=== PATIENT | female | born 1950 | race African-American/Black ===

== ENCOUNTER 2016-05-26 18:36 | Emergency (ER) | payer MEDICARE, MEDICAID ==
[~2016-05-26] VITALS: Ht 175.3 cm; Wt 94.8 kg
[2016-05-26 19:02] VITALS: BP 156/83
[2016-05-26 19:46] LABS: BASOPHILS % (AUTO) 1.6 % (0.0-2.0); EOSINOPHILS % (AUTO) 4.5 % (0.0-3.0); LYMPHOCYTES % (AUTO) 47.8 % (20.0-45.0); MEAN CORPUSCULAR HEMOGLOBIN 27.7 PG (27.0-31.0); MEAN CORPUSCULAR HGB CONC 30.6 G/DL (32.0-36.0); MEAN CORPUSCULAR VOLUME 91 FL (80-99); MEAN PLATELET VOLUME 6.3 FL (6.5-10.1); MONOCYTES % (AUTO) 4.1 % (1.0-10.0); NEUTROPHILS % (AUTO) 42.1 % (45.0-75.0); PLATELET COUNT 270 K/UL (150-450); RED BLOOD COUNT 4.62 M/UL (4.20-5.40); RED CELL DISTRIBUTION WIDTH 14.4 % (11.6-14.8); WHITE BLOOD COUNT 7.4 K/UL (4.8-10.8)
[2016-05-26 20:01] LABS: ALANINE AMINOTRANSFERASE 12 U/L (3-33); ALBUMIN/GLOBULIN RATIO 1.2 (1.0-2.7); ANION GAP 12 (5-15); ASPARTATE AMINO TRANSFERASE 14 U/L (5-40); CALCIUM 9.9 mg/dL (8.6-10.2); CARBON DIOXIDE 32 mEQ/L (20-30); CHLORIDE 100 mEQ/L (98-107); CREATININE 1.1 mg/dL (0.5-0.9); GLOMERULAR FILTRATION RATE 49.6 mL/min (>60); HEMOLYSIS 5; POTASSIUM 3.6 mEQ/L (3.4-4.9); SODIUM 144 mEQ/L (135-145); TOTAL PROTEIN 7.7 g/dL (6.6-8.7)
[2016-05-26] MEDS ORDERED: CLARITIN-D 241 EACH PO (20:19)
[2016-05-26] MEDS ORDERED: LEVOFLOXACIN500 MG ORAL (20:19)
[2016-05-26 20:28] VITALS: BP 156/83
--- NOTE | 2016-05-27 10:35 | Diagnostic Imaging Report ---
Indication: Headache Technique: Contiguous 5 mm thick transaxial imaging of the head obtained in a Siemens Sensation [address] scanner. Soft tissue and bone windows generated. Total Dose length Product (DLP): [address] Dose Index Volume (CTDIvol): 70.38 mGy Comparison: none Findings: The size and configuration of the cortical sulci, basal cisterns, and ventricles are within normal limits for age. There is no mass effect, midline shift, or edema identified. There is no evidence of acute hemorrhage or abnormal intra-axial or extra-axial fluid collections. The bones and soft tissues are unremarkable. Impression: No mass effect, edema or acute bleed. The CT scanner at [facility] is accredited by the [employer] and the scans are performed using protocols designed to limit radiation exposure to as low as reasonably achievable to attain images of sufficient resolution adequate for diagnostic evaluation.
--- NOTE | 2016-05-27 12:17 | Emergency Room Report ---
History of Present Illness General Chief Complaint: Dizziness Source: Patient (INDIA BISHOP) Present Illness HPI The pt is a 65 yo F with a Hx of CVA and allergies presenting for R sided facial pain and dizziness which began two weeks prior. The pt also admits to feeling congested. The pain is described as an 8/10 dull ache to R face. pt denies Blurred vision, fatigue, weakness, LOC, falling, SOB, CP, cough, N, V, abd pain (INDIA BISHOP) Allergies: Coded Allergies: CODEINE (Verified Allergy, Unknown, 05/26/16) Patient History Past Medical History: see triage record, CVA/TIA Pertinent Family History: none Now: No Reviewed Nursing Documentation: PMH: Agreed, PSxH: Agreed (INDIA BISHOP) Nursing Documentation-PMH Hx Hypertension: Yes (INDIA BISHOP) Review of Systems All Other Systems: negative except mentioned in HPI (INDIA BISHOP) Physical Exam Vital Signs Date Time Temp Pulse Resp B/P Pulse Ox O2 Delivery O2 Flow Rate FiO2 05/26/16 18:52 98.2 72 16 156/83 98 Room Air Sp02 EP Interpretation: reviewed, normal General Appearance: no apparent distress, alert, GCS 15, non-toxic Head: normocephalic, atraumatic Eyes: bilateral eye EOMI, bilateral eye PERRL, bilateral eye normal inspection ENT: hearing grossly normal, normal pharynx, no angioedema, normal voice, TMs + canals normal, uvula midline, other - TTP over T maxillary sinus Neck: full range of motion, supple/symm/no masses Respiratory: chest non-tender, lungs clear, normal breath sounds, no wheezing, speaking full sentences Cardiovascular #1: regular rate, rhythm, no edema Gastrointestinal: normal bowel sounds, non tender, soft, non-distended, no guarding, no rebound Musculoskeletal: back normal, gait/station normal, normal range of motion, non- tender Neurologic: alert, oriented x3, responsive, weigher and mixer III-XII nml as tested, motor strength/tone normal, sensory intact, speech normal Psychiatric: judgement/insight normal, memory normal, mood/affect normal, no suicidal/homicidal ideation Skin: normal color, no rash, warm/dry, well hydrated (INDIA BISHOP) Medical Decision Making MA Attestation Dr. Coulter is my supervising physician. Patient management was discussed with my supervising physician (INDIA BISHOP) Medicare Attestation The history of Kelin Abreu has been reviewed and management options for her have been examined and discussed by Shanon Coulter. I have personally examined and interviewed the patient. (SHANON COULTER D.O.) Diagnostic Impression: Primary Impression: Sinusitis ER Course The pt is a 65 yo F with a Hx of CVA and allergies presenting for R sided facial pain and dizziness which began two weeks prior DDx: sinusitis, dehydration, CVA, AOM, menieres disease PE: Pt is hypertensive. NAD. CN II-XII intact. A&Ox3 TTP over R maxillary sinus with nasal congestion. otherwise HEENT unremarkable. RRR Labs unremarkable. No anemia and no signs of dehydration. CT head unremarkable. The pt will be ID'ed home with prescription for Levaquin and Claritin. ER precautions given. Laboratory Tests Test 05/26/16 19:30 White Blood Count 7.4 K/UL (4.8-10.8) Red Blood Count 4.62 M/UL (4.20-5.40) Hemoglobin 12.8 G/DL (12.0-16.0) Hematocrit 41.9 % (37.0-47.0) Mean Corpuscular Volume 91 FL (80-99) Mean Corpuscular Hemoglobin 27.7 PG (27.0-31.0) Mean Corpuscular Hemoglobin Concent 30.6 G/DL (32.0-36.0) L Red Cell Distribution Width 14.4 % (11.6-14.8) Platelet Count 270 K/UL (150-450) Mean Platelet Volume 6.3 FL (6.5-10.1) L Neutrophils (%) (Auto) 42.1 % (45.0-75.0) L Lymphocytes (%) (Auto) 47.8 % (20.0-45.0) H Monocytes (%) (Auto) 4.1 % (1.0-10.0) Eosinophils (%) (Auto) 4.5 % (0.0-3.0) H Basophils (%) (Auto) 1.6 % (0.0-2.0) Sodium Level 144 mEQ/L (135-145) Potassium Level 3.6 mEQ/L (3.4-4.9) Chloride Level 100 mEQ/L (98-107) Carbon Dioxide Level 32 mEQ/L (20-30) H Anion Gap 12 (5-15) Blood Urea Nitrogen 12 mg/dL (7-23) Creatinine 1.1 mg/dL (0.5-0.9) H Estimate Glomerular Filtration Rate 49.6 mL/min (>60) Glucose Level 113 mg/dL (74-106) H Calcium Level 9.9 mg/dL (8.6-10.2) Total Bilirubin < 0.2 mg/dL (0.0-1.2) Aspartate Amino Transferase (AST) 14 U/L (5-40) Alanine Aminotransferase (ALT) 12 U/L (3-33) Alkaline Phosphatase 97 U/L (35-104) Total Protein 7.7 g/dL (6.6-8.7) Albumin 4.3 g/dL (3.5-5.2) Globulin 3.4 g/dL Albumin/Globulin Ratio 1.2 (1.0-2.7) Lab Results Impression CBC, CMP unremarkable (INDIA BISHOP P.A.) EKG Diagnostic Results Rate: normal Rhythm: NSR ST Segments: no acute changes PA Scribe Text EKG as reviewed by my SP shows no acute changes or findings (INDIA BISHOP P.A.) CT/MRI/US Diagnostic Results CT/MRI/US Diagnostic Results : Imaging Test Ordered: CT head Impression No mass effect, edema or acute bleed (INDIA BISHOP P.A.) Last Vital Signs Date Time Temp Pulse Resp B/P Pulse Ox O2 Delivery O2 Flow Rate FiO2 05/26/16 20:28 98.2 86 16 156/83 98 Room Air Status: improved (INDIA BISHOP P.A.) Disposition: HOME, SELF-CARE Condition: Improved Scripts Levofloxacin (LEVOFLOXACIN*) 500 Mg Tablet 500 MG ORAL DAILY, #10 TAB Prov: INDIA BISHOP P.A. 05/26/16 Loratadine/Pseudoephedrine (CLARITIN-D 24 HOUR TABLET) 1 Each Tab.er.24h 1 TAB PO DAILY, #30 TAB Prov: INDIA BISHOP 05/26/16 Referrals: NON PHYSICIAN (PCP) Patient Instructions: Sinusitis, Adult, Dizziness Additional Instructions: I discussed my findings with the patient. All questions and concerns have been answered. Treatment and medication compliance have been addressed. I advised the patient that they need to follow up with PMD in 3-5 days. Return to ED if symptoms worsen, new symptoms arise, or if needed for any reason. Patient verbalized understanding of discharge instructions. INDIA BISHOP May 27, 2016 12:17 SHANON COULTER D.O. Jun 18, 2016 14:20
--- NOTE | 2016-05-28 20:32 | Cardiology Report ---
APPROVED REPORT EKG Measurement Heart [id number] Normal sinus rhythm Nonspecific ST abnormality Abnormal ECG
== END 2016-05-26 20:28 | disposition home or self-care (01) ==
LOC: EMR 19:30
DX: J32.9 Chronic sinusitis, unspecified (principal); I10 Essential (primary) hypertension; Z86.73 Personal history of transient ischemic attack (TIA), and cerebral infarction without residual deficits; Z88.6 Allergy status to analgesic agent
CPT/HCPCS: 36415; 70450; 80053; 85025; 93005; 96374

== ENCOUNTER 2016-06-09 18:24 | Emergency (ER) | payer MEDICARE, MEDICAID ==
[~2016-06-09] VITALS: Ht 175.3 cm; Wt 90.7 kg
[~2016-06-09 18:24] MED LIST: CLARITIN-D 241 EACH PO; LEVOFLOXACIN500 MG ORAL
[2016-06-09] MEDS ORDERED: HYDROCHLOROTH12.5 M2 ORAL (18:40)
[2016-06-09] MEDS ORDERED: AMLODIPINE BES2.5 MG ORAL (18:41)
[2016-06-09] MEDS ORDERED: HYDRALAZINE HCL10 MG ORAL (18:41)
[2016-06-09 20:14] VITALS: BP 127/74
[2016-06-09] MEDS ORDERED: IBUPROFEN600 MG ORAL (20:44)
[2016-06-09 21:10] VITALS: BP 127/74
--- NOTE | 2016-06-09 22:38 | Emergency Room Report ---
History of Present Illness General Chief Complaint: Pain Source: Patient (INDIA BISHOP) Present Illness HPI The patient is a 66-year-old female presenting for bilateral knee pain and swelling which began one week prior. The patient admits to prior traumatic injury to both knees many years prior. The patient denies any recent injury but does admit to increased activity recently. Pain is described as a 6/10 dull ache to both knees and radiates downwards to the feet. Patient denies any numbness or tingling. The patient denies any other symptoms including nausea, vomiting, fever, chills, shortness of breath, chest pain, cough (INDIA BISHOP) Allergies: Coded Allergies: CODEINE (Verified Allergy, Unknown, 05/26/16) Patient History Past Medical History: see triage record Pertinent Family History: none Now: No Reviewed Nursing Documentation: PMH: Agreed, PSxH: Agreed (INDIA BISHOP) Nursing Documentation-PMH Past Medical History: No History, Except For Hx Hypertension: Yes (INDIA BISHOP) Review of Systems All Other Systems: negative except mentioned in HPI (INDIA BISHOP) Physical Exam Vital Signs Date Time Temp Pulse Resp B/P Pulse Ox O2 Delivery O2 Flow Rate FiO2 06/09/16 18:36 97.9 85 16 124/72 100 Room Air Sp02 EP Interpretation: reviewed, normal General Appearance: no apparent distress, alert, GCS 15, non-toxic Head: normocephalic, atraumatic Respiratory: chest non-tender, lungs clear, normal breath sounds, speaking full sentences Cardiovascular #1: regular rate, rhythm, no edema Genitourinary: normal inspection, no CVA tenderness Musculoskeletal: back normal, gait/station normal, normal range of motion, no calf tenderness, tender - TTP over both knees diffusely Neurologic: alert, oriented x3, responsive, motor strength/tone normal, sensory intact, normal gait, speech normal Psychiatric: judgement/insight normal, memory normal, mood/affect normal, no suicidal/homicidal ideation Reflexes: 3+ bicep (R), 3+ bicep (L), 3+ tricep (R), 3+ tricep (L), 3+ knee (R) , 3+ knee (L) Skin: normal color, no rash, warm/dry, well hydrated Lymphatic: no adenopathy (INDIA BISHOP) Medical Decision Making PA Attestation Dr. Lott is my supervising physician. Patient management was discussed with my supervising physician (INDIA BISHOP) Diagnostic Impression: Primary Impression: Knee pain, bilateral ER Course The patient is a 66-year-old female presenting for bilateral knee pain and swelling which began one week prior. Ddx considered include but not limited to sprain/strain, fracture, OA, contusion PE: Vitals WNL. NAD Bilateral knees: Diffuse tenderness to palpation. No obvious deformity. No laxity. No ecchymosis. Full active range of motion X-rays of both knees are unremarkable for acute findings The patient will be discharged home with a prescription for Motrin. Patient is given rice instructions. ER precautions are given (INDIA BISHOP) ER Course Agree with PA-obtained HPI, PE, assessment and plan, as well as interpretation of imaging and ECG, if done. (REENA LOTT M.D.) Other X-Ray Diagnostic Results Other X-Ray Diagnostic Results #1: X-Ray Ordered: L knee Date: Jun 09, 2016 EP Interpretation: Yes Findings: no fractures, no dislocation, no soft tissue swelling Number of Views: 3 PA Scribe Text I am acting as scribe for my supervising physician. My supervising physician's interpretation of the L knee xrays are there are no fractures, dislocations or soft tissue swelling. Other X-Ray Diagnostic Results #2: X-Ray Ordered: R knee Date: Jun 09, 2016 EP Interpretation: Yes Findings: no fractures, no dislocation, no soft tissue swelling Number of Views: 3 PA Scribe Text I am acting as scribe for my supervising physician. My supervising physician's interpretation of the R knee xrays are there are no fractures, dislocations or soft tissue swelling. (INDIA BISHOP) Last Vital Signs Date Time Temp Pulse Resp B/P Pulse Ox O2 Delivery O2 Flow Rate FiO2 06/09/16 21:10 98.1 87 15 127/74 99 Room Air Status: improved (INDIA BISHOP) Disposition: HOME, SELF-CARE Condition: Improved Scripts Ibuprofen* (MOTRIN*) 600 Mg Tablet 600 MG ORAL Q8H Y for For Pain, #30 TAB 0 Refills Prov: INDIA BISHOP 06/09/16 Patient Instructions: Knee Pain, RICE for Routine Care of Injuries Additional Instructions: I discussed my findings with the patient. All questions and concerns have been answered. Treatment and medication compliance have been addressed. I advised the patient that they need to follow up with PMD in 3-5 days. Return to ED if pain remains or worsens, numbness or tingling occurs, new rash is noticed, fever is noticed, or if needed for any reason. Patient verbalized understanding of discharge instructions. INDIA BISHOP Jun 09, 2016 22:38 REENA LOTT M.D. Jun 12, 2016 08:54
--- NOTE | 2016-06-10 11:40 | Diagnostic Imaging Report ---
Indication: PAIN, status post fall Technique: 3 views of the left knee Comparison: None Findings:There are small patellar osteophytes. No acute fractures. No dislocations. Joint spaces are preserved. There is minimal chondrocalcinosis of the medial and lateral menisci Impression:Minimal degenerative change. No acute bony trauma
--- NOTE | 2016-06-10 11:41 | Diagnostic Imaging Report ---
Indication: PAIN Technique: 3 views of the right knee Comparison: None Findings:There is medial and lateral meniscal chondrocalcinosis. 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 No acute fractures. No dislocations. No definite suprapatellar effusion Impression:No acute process Meniscal chondrocalcinosis incidentally noted
== END 2016-06-09 21:11 | disposition home or self-care (01) ==
LOC: EMR 19:51
DX: M25.562 Pain in left knee (principal); M25.561 Pain in right knee; I10 Essential (primary) hypertension; Z88.6 Allergy status to analgesic agent
CPT/HCPCS: 99284